=== PATIENT | female | born 1990 | race Two or more races ===

== ENCOUNTER 2025-06-29 21:36 | Emergency (ER) | payer MEDICAID, SELFPAY ==
[2025-06-29 21:37] VITALS: BMI 31.1
[2025-06-29 21:58] VITALS: BP 119/82; PULSE 87; RESP 18; TEMP 37; O2SAT 99
[2025-06-29 22:03] LABS: Collection Type, Urine Clean Catch
--- NOTE | 2025-06-29 22:03 | EDRME_ITS ---
Rapid Medical Screening Exam [facility] Arrival date/time: 06/29/25 21:36 35F at approximately 7 weeks and with no significant PMH presents to ED with 2 days of pelvic pain and vaginal bleeding. Patient's blood type is O+. Chief Complaint: Vaginal Bleeding Vital signs: Vital Signs Temperature 98.6 F 06/29/25 21:58 Pulse Rate 87 06/29/25 21:58 Respiratory Rate 18 06/29/25 21:58 Blood Pressure 119/82 06/29/25 21:58 Pulse Oximetry (%) 99 06/29/25 21:58 Oxygen Delivery Method Room Air 06/29/25 21:58
--- NOTE | 2025-06-29 22:04 | XR_ITS ---
Examination: OB Transvaginal ultrasound of the pelvis, complete Technique: Transvaginal sonographic images pelvis performed using marte scale imaging Exam date and time: June 29, 2025 1110 hrs. Indications: Vaginal bleeding and pelvic cramping today Findings: Uterus 8.9 cm endometrial stripe 24 cm No uterine mass or intrauterine gestation Right ovary 2.8 cm arterial flow 14 mm follicular cyst Left ovary obscured by bowel gas Impression: No uterine mass or intrauterine gestation.
[2025-06-29 22:23] LABS: Bilirubin,Urine Negative (Negative); Blood,Urine 3+ (Negative); Clarity,Urine Turbid (Clear/Hazy); Color,Urine Lt-Yellow (Lt Yel-Yel); Glucose, Urine Negative (Negative); Ketones,Urine Negative (Negative); Leukocyte Esterase,Urine Positive (Negative); Nitrite,Urine Negative (Negative); PH,Urine 6.5 (5.0-7.0); Protein,Urine Trace (Neg - Trace); RBC,Urine 1140 /hpf (0-3); Specific Gravity,Urine 1.025 (1.001-1.035); Squamous Epithelial Cell,Urine 2 /hpf (0-5); Urobilinogen,Urine Negative mg/dL (0.0-1.0); WBC,Urine 37 /hpf (0-5)
[2025-06-29 22:26] LABS: Basophils # (Auto) 0.0 Thou/mm3 (0.0-0.2); Basophils % (Auto) 0 % (0-2.5); Eosinophils # (Auto) 0.4 Thou/mm3 (0.0-0.5); Eosinophils % (Auto) 4 % (0-10); Hematocrit 39.4 % (36.0-46.0); Hemoglobin 12.4 g/dL (12.0-16.0); Immature Granulocytes Auto 0.04 Thou/mm3 (0.00-0.00); Lymphocytes # (Auto) 3.8 Thou/mm3 (1.0-4.8); Lymphocytes % (Auto) 36 % (10-50); Mean Corpuscular HGB Conc 31.5 g/dl (31.0-37.0); Mean Corpuscular Hemoglobin 25.7 pg (25.0-35.0); Mean Corpuscular Volume 82 fL (80-100); Monocytes # (Auto) 0.5 Thou/mm3 (0.0-0.8); Monocytes % (Auto) 5 % (0-12); Neutrophils # (Auto) 5.7 Thou/mm3 (1.8-7.7); Neutrophils % (Auto) 55 % (37-80); Nucleated Red Blood Cell # 0.00 Thou/mm3 (0.00-0.00); Nucleated Red Blood Cell % 0 /100 WBC (0); Platelet Count 280 Thou/mm3 (140-440); RDW Standard Deviation 41.8 fL (36.4-46.3); Red Blood Count 4.82 Miln/mm3 (4.00-5.20); White Blood Count 10.5 Thou/mm3 (3.6-11.0)
[2025-06-29 22:29] LABS: Culture Indicated,Urine Yes
[2025-06-29 22:45] LABS: Alanine Aminotransferase 46 U/L (10-49); Albumin, Serum 4.7 gm/dL (3.5-5.0); Albumin/Globulin Ratio 2.0 (1.2-2.2); Alkaline Phosphatase 86 U/L (46-116); Anion Gap 8 (7-16); Aspartate Amino Transferase 34 U/L (0-34); BUN/Creatinine Ratio 11 Ratio (12-20); Beta HCG,Quantitative 105 mIU/mL (<5.0); Bilirubin,Total 0.2 mg/dL (0.3-1.2); Blood Urea Nitrogen 9 mg/dL (9-23); Calcium 9.7 mg/dL (8.3-10.6); Calcium (Corrected) 9.7 mg/dL (8.5-10.1); Carbon Dioxide 26.7 mMol/L (20.0-31.0); Chloride 106 mMol/L (98-107); Creatinine (Component) 0.8 mg/dL (0.6-1.3); Estimated Creatinine Clearance 93.5 mL/min (>60); Globulin 2.3 gm/dL (2.3-3.5); Glucose 99 mg/dL (74-106); Osmolality,Calculated 279 (275-295); Potassium 4.9 mMol/L (3.4-5.1); Sodium 141 mMol/L (136-145); Total Protein 7.0 gm/dL (5.7-8.2); eGFR > 60 See Note
--- NOTE | 2025-06-30 00:18 | EDNOTE_ITS ---
ED OB Contraction Preg RMI/HPI General Chief complaint: Vaginal Bleeding Stated complaint: 7 WEEKS PRG, VAG BLEEDING AND PAIN Time Seen by Provider: 06/29/25 22:30 Arrival date/time: 06/29/25 21:36 RME / HPI RME / HPI Narrative: 06/29/25 21:36 35F at approximately 7 weeks and with no significant PMH presents to ED with 2 days of pelvic pain and vaginal bleeding. Patient's blood type is O+. DR. ESPINO MAIN ED EVALUATION: EGA 6-7 weeks by date presents with generalized abdominal pain and diffuse cramping x 24 hours. Patient has gone through several pads in the last day. Reports lightheadedness and dizziness with standin, but no near syncope. Notes chills without fever. PMH is unremarkable. Allergies are unremarkable. PSHx includes Cystectomy and x 3. No illicit drug use, patient is nondrinker and nonsmoker. Related Data Home Medications ?Medication ?Instructions ?Recorded ?Confirmed prenat.vits,bertha,[id number] 1 tab PO QDAY 01/10/21 02/02/21 ferrous sulfate 325 mg (65 mg 325 mg PO QDAY 01/14/21 02/02/21 iron) tablet (iron) Previous Rx's ?Medication ?Instructions ?Recorded hydrocodone 5 mg-acetaminophen 325 1 tab PO Q8H PRN pa in #7 tabs 02/05/21 mg tablet ibuprofen 400 mg tablet 400 mg PO Q6H PRN pain #14 t abs 02/05/21 promethazine 12.5 mg tablet 12.5 mg PO TID PRN nausea and 06/30/25 vomiting #10 tabs Allergies Allergy/AdvReac Type Severity Reaction Status Date / Time gluten Allergy Verified 06/29/25 21:37 TAPE Allergy Mild Rash Uncoded 06/29/25 21:37 Review of Systems Review of Systems Systems Reviewed: All systems reviewed, normal except as documented Past Medical History Past Medical History REPRODUCTIVE: Positive Previous Pregnancies HEMATOLOGIC: Positive Blood Disorders and Anemia OTHER HISTORY: Positive Hospitalization and Blood Transfusions Family History FAMILY HISTORY: Positive Family Respiratory Disorders (FATHER:ASTHMA), Family Cancer (MOTHER:SKIN TAG NOSE) and Family Surgery (MOTHER:HYSTERECTOMY) Surgical History SURGICAL: Positive Section ED Exam Narrative Physical exam: GEN. APPEARANCE: The patient is alert awake oriented X-3 in no distress, lying down comfortably, does not look ill/toxic. Patient has good eye contact. Patient is cooperative. VITALS: All vitals were reviewed and the pulse ox is 99% on room air which is normal according to my interpretation. HEENT: Normocephalic, atraumatic. Pupils are equal and reactive. Oral mucosa is moist. Patent Nares NECK: Supple, nontender, no thyromegaly, no meningismus, no JVD, no step offs CHEST: Symmetrical, atraumatic, and with equal expansion , Nontender on palpation no deformity and no crepitus. CARDIOVASCULAR: Heart regular rhythm no murmur or gallop rub or extra beats. LUNGS: Clear to auscultation bilaterally with symmetrical chest rise. No laboring tachypnea or wheezing. No intercostal subcostal retraction. No rales and no rhonchi. ABDOMEN: Soft, mildly tender diffuse lower abdomen, no guarding or peritoneal findings. No rebound tenderness. There are no abnormal masses palpated. Active and normal bowel sounds. EXTREMITIES: Nontender. No edema. No cyanosis. Patient is able to move all 4 extremities well, with full ROM and good CSM. SKIN: Warm and dry, no jaundice or rashes noted. MUSCULOSKELETAL: No lubar or midline bony tenderness. There is no CVA tenderness. No paraspinal muscle spasm or tenderness. NEURO: Patient is BHAGAT x 4, Cranial nerves II through XII grossly intact. There is no focal neurologic deficits noted. GCS is 15, PNS and [employer] appear grossly intact. PSYCHIATRIC: Patient is in normal mood and affect, cooperative, no SI or HI or hallucinations. Course Quality Measures none Orders Category Date Time Status US OB transvaginal Stat Exams 06/29/25 22:04 Completed Beta HCG,Quantitative Stat Lab 06/29/25 22:15 Completed CBC Stat Lab 06/29/25 22:15 Completed CMP [Comprehensive Metabolic Panel] Stat Lab 06/29/25 22:15 Completed UA, C/S IF [Urinalysis, C/S if Indicated] Stat Lab 06/29/25 21:56 Completed Urine Culture Stat Lab 06/29/25 21:56 Received Vital Signs Vital signs: Vital Signs Temperature 98.6 F 06/29/25 21:58 Pulse Rate 87 06/29/25 21:58 Respiratory Rate 18 06/29/25 21:58 Blood Pressure 119/82 06/29/25 21:58 Pulse Oximetry (%) 99 06/29/25 21:58 Oxygen Delivery Method Room Air 06/29/25 21:58 Vaginal Bleeding MDM Narrative MDM Narrative: Scribe Attestation: I, Maryam Kuhn, am scribing for and in the presence of Dr. Espino. Provider Notation: Although this document has been carefully reviewed, there may still be some phonetic and other typographical errors. These errors are purely grammatical due to imperfections in the software program and should not be construed in any way to compromise the substance of the patient's medical care during this visit. EGA 6-7 weeks by date presents with generalized abdominal pain and diffuse cramping x 24 hours. Patient has gone through several pads in the last day. Please see PE findings. Laboratory markers, including normal CBC, WBC stable, hemoglobin and platelets normal. Serum chemistries are unremarkable. UA demonstrates hematuria, pyuria, positive leukocyte esterase, and negative nitrite reaction. Blood type currently pending. Patient observed for several hours and remained otherwise stable throughout ED course. Underwent pelvic US which failed to demonstrate evidence of IUP, right ovarian follicular cyst with flow noted, and left ovary not clearly visualized. Given dates and HCG of 105, patient has likely suffered blighted ovum/complete AB, although?possibility of early still exists and will require repeat serum HCG and pelvic US in 3-5 days. Patient data External records reviewed:: [facility] previous records (Reviewed prior ED records from 01/19/24. Patient was seen for Fever and chills.) Clinical information provided by:: patient Social determinants that could affect healthcare access:: none Patient has the following chronic illnesses:: Anemia How is presenting disease/condition affected by chronic disease/condition?: uneffected by Evaluation data The following diagnostics were reviewed and interpreted by me:: lab results and radiology exam(s) Lab and/or radiology exams considered but not ordered:: None Interpretation Summary: RADIOLOGY Transvaginal US: Findings: Uterus 8.9 cm endometrial stripe 24 cm No uterine mass or intrauterine gestation Right ovary 2.8 cm arterial flow 14 mm follicular cyst Left ovary obscured by bowel gas Impression: No uterine mass or intrauterine gestation. Medications / Prescriptions Medications or Prescriptions considered but not ordered:: None Medication administrations:: See above if any Consultations Consultation(s) initiated? (list below): No Diagnosis Vaginal Bleeding Differential Diagnosis: missed , threatened , dysfunctional uterine bleeding, menometrorrhagia, incomplete , ectopic without intrauterine and vaginal bleeding Most likely diagnosis given after review of the tests above:: Missed Admission Indicated Admission indicated?: not indicated Explain why admission is indicated or not indicated:: Patient does not meet admission criteria. Admission Request Was there a request for admission?: No Disposition Plan Disposition Plan: Discharge Discharge Attestation Discharge Attestation: The patient and all family members were given an opportunity to ask questions and understood the discharge instructions. Discharge instructions specifically effects, indications for sooner follow up or return to the emergency department, and the expected course of current diagnosis. Patient condition: Stable Discharge Plan Plan Patient Disposition: HOME (Self Care) Discharge Disposition comment: stable Prescriptions/Referrals Prescriptions/Med Rec: New promethazine 12.5 mg tablet 12.5 mg PO TID PRN (Reason: nausea and vomiting) Qty: 10 0RF No Action Vitamin Tablet 1 tab PO QDAY hydrocodone-acetaminophen 5-325 mg tablet 1 tab PO Q8H MDD 4 PRN (Reason: pain) Qty: 7 0RF ibuprofen 400 mg tablet 400 mg PO Q6H MDD 6 PRN (Reason: pain) Qty: 14 0RF ferrous sulfate [iron] 325 mg (65 mg iron) Tablet 325 mg PO QDAY Problem List Clinical Impression: Missed Clinical Impression: (Ruled Out): Incomplete Patient/Caregiver Discharge Instructions Discharge Activity: activity as tolerated Diet Instructions: Regular Education Materials: Understanding Miscarriage: Emotions, Understanding Miscarriage ... Additional Instructions: Follow-up with PATENT COUNSEL physician in 48 to 72 hours for repeat hCG/serial ultrasound. Return for fevers escalating hemorrhage i.e. greater than 1 pad per hour lightheadedness dizziness or general worsening illness Print Language: Northern Irish Stand Alone Forms: Daniela Award Info., Patient Portal Info Letter
[2025-06-30 00:35] VITALS: RESP 18
== END 2025-06-30 00:35 | disposition home or self-care (01) ==
PROVIDERS: Physician Assistant; Emergency Provider Emergency Medicine
DX: O02.1 Missed abortion (principal); Z3A.01 Less than 8 weeks gestation of pregnancy
CPT/HCPCS: 36415; 76817; 80053; 81001; 84702; 85025; 87086; 99283

== ENCOUNTER 2025-07-05 10:09 | Emergency (ER) | payer MEDICAID, SELFPAY ==
[2025-07-05 10:18] VITALS: BP 107/74; PULSE 72; RESP 16; TEMP 37; O2SAT 100; BMI 31.4
--- NOTE | 2025-07-05 10:33 | PD.EDRME ---
Rapid Medical Screening Exam [facility] Arrival date/time: 07/05/25 10:09 35-year-old female presents to the emergency department of complaints of vaginal bleeding, pelvic pain and dysuria patient reports she recently had a miscarriage Chief Complaint: Abdominal Pain Vital signs: Vital Signs Temperature 98.6 F 07/05/25 10:18 Pulse Rate 72 07/05/25 10:18 Respiratory Rate 16 07/05/25 10:18 Blood Pressure 107/74 07/05/25 10:18 Pulse Oximetry (%) 100 07/05/25 10:18 Oxygen Delivery Method Room Air 07/05/25 10:18
--- NOTE | 2025-07-05 10:36 | XR_ITS ---
Examination: Pelvic ultrasound, transabdominal, complete Technique: Transabdominal ultrasound of the pelvis performed using grayscale imaging Date and time of exam: July 05, 2025 1110 hours INDICATIONS: Pelvic pain beginning one week ago FINDINGS: Uterus 10.3 cm endometrial stripe 0.3 cm No uterine mass or intrauterine gestation Right ovary 2.6 cm arterial flow. Left ovary 2.8 cm arterial flow to 11 mm follicular cyst IMPRESSION: No uterine mass or intrauterine gestation
[2025-07-05 10:57] LABS: Basophils # (Auto) 0.0 Thou/mm3 (0.0-0.2); Basophils % (Auto) 1 % (0-2.5); Eosinophils # (Auto) 0.4 Thou/mm3 (0.0-0.5); Eosinophils % (Auto) 4 % (0-10); Hematocrit 38.1 % (36.0-46.0); Hemoglobin 12.1 g/dL (12.0-16.0); Immature Granulocytes Auto 0.09 Thou/mm3 (0.00-0.00); Lymphocytes # (Auto) 3.4 Thou/mm3 (1.0-4.8); Lymphocytes % (Auto) 42 % (10-50); Mean Corpuscular HGB Conc 31.8 g/dl (31.0-37.0); Mean Corpuscular Hemoglobin 25.9 pg (25.0-35.0); Mean Corpuscular Volume 82 fL (80-100); Monocytes # (Auto) 0.5 Thou/mm3 (0.0-0.8); Monocytes % (Auto) 6 % (0-12); Neutrophils # (Auto) 3.7 Thou/mm3 (1.8-7.7); Neutrophils % (Auto) 45 % (37-80); Nucleated Red Blood Cell # 0.00 Thou/mm3 (0.00-0.00); Nucleated Red Blood Cell % 0 /100 WBC (0); Platelet Count 253 Thou/mm3 (140-440); RDW Standard Deviation 41.7 fL (36.4-46.3); Red Blood Count 4.67 Miln/mm3 (4.00-5.20); White Blood Count 8.1 Thou/mm3 (3.6-11.0)
[2025-07-05 11:22] LABS: Alanine Aminotransferase 52 U/L (10-49); Albumin, Serum 4.6 gm/dL (3.5-5.0); Albumin/Globulin Ratio 1.8 (1.2-2.2); Alkaline Phosphatase 77 U/L (46-116); Anion Gap 8 (7-16); Aspartate Amino Transferase 30 U/L (0-34); BUN/Creatinine Ratio 13 Ratio (12-20); Beta HCG,Quantitative 6 mIU/mL (<5.0); Bilirubin,Total 0.2 mg/dL (0.3-1.2); Blood Urea Nitrogen 10 mg/dL (9-23); Calcium 10.0 mg/dL (8.3-10.6); Calcium (Corrected) 10.0 mg/dL (8.5-10.1); Carbon Dioxide 28.2 mMol/L (20.0-31.0); Chloride 104 mMol/L (98-107); Creatinine (Component) 0.8 mg/dL (0.6-1.3); Estimated Creatinine Clearance 94.0 mL/min (>60); Globulin 2.6 gm/dL (2.3-3.5); Glucose 93 mg/dL (74-106); Osmolality,Calculated 278 (275-295); Potassium 4.7 mMol/L (3.4-5.1); Sodium 140 mMol/L (136-145); Total Protein 7.2 gm/dL (5.7-8.2); eGFR > 60 See Note
[2025-07-05 11:28] LABS: Collection Type, Urine Clean Catch
[2025-07-05 12:09] LABS: Bilirubin,Urine Negative (Negative); Blood,Urine 1+ (Negative); Clarity,Urine Clear (Clear/Hazy); Color,Urine Lt-Yellow (Lt Yel-Yel); Culture Indicated,Urine Not Indicated; Glucose, Urine Negative (Negative); Ketones,Urine Negative (Negative); Leukocyte Esterase,Urine Negative (Negative); Nitrite,Urine Negative (Negative); PH,Urine 7.0 (5.0-7.0); Protein,Urine Negative (Neg - Trace); RBC,Urine 9 /hpf (0-3); Specific Gravity,Urine 1.018 (1.001-1.035); Squamous Epithelial Cell,Urine 2 /hpf (0-5); Urobilinogen,Urine Negative mg/dL (0.0-1.0); WBC,Urine 1 /hpf (0-5)
--- NOTE | 2025-07-05 16:31 | EDNOTE_ITS ---
<Statement entered by Rebeca Murray MD - 07/24/25 06:11> As co-signing physician, I was present and available for consult prn. I concur with the plan and care as documented by the midlevel provider. ED OB Contraction Preg RMI/HPI General Chief complaint: Abdominal Pain Stated complaint: ABD PAIN Time Seen by Provider: 07/05/25 11:22 Arrival date/time: 07/05/25 10:09 RME / HPI RME / HPI Narrative: 35-year-old female presents to the emergency department of complaints of vaginal bleeding, pelvic pain and dysuria patient reports she recently had a miscarriage. Patient is concerned because she is worried that she is might be having anemia. Patient denies any other complaints patient is ambulatory. Today she changes at least 2 pads only . Related Data Home Medications ?Medication ?Instructions ?Recorded ?Confirmed prenat.vits,bertha,[id number] 1 tab PO QDAY 01/10/21 02/02/21 ferrous sulfate 325 mg (65 mg 325 mg PO QDAY 01/14/21 02/02/21 iron) tablet (iron) Previous Rx's ?Medication ?Instructions ?Recorded hydrocodone 5 mg-acetaminophen 325 1 tab PO Q8H PRN pa in #7 tabs 02/05/21 mg tablet ibuprofen 400 mg tablet 400 mg PO Q6H PRN pain #14 t abs 02/05/21 promethazine 12.5 mg tablet 12.5 mg PO TID PRN nausea and 06/30/25 vomiting #10 tabs Allergies Allergy/AdvReac Type Severity Reaction Status Date / Time gluten Allergy Verified 06/29/25 21:37 TAPE Allergy Mild Rash Uncoded 06/29/25 21:37 Review of Systems Review of Systems Narrative Review of Systems: Review of system reviewed and within normal limits except mentioned in HPI ED Exam Narrative Physical exam: VITAL SIGNS: Reviewed. GENERAL APPEARANCE: Alert and interactive, follows commands, no acute distress, HEAD AND FACE: Non-traumatic. ENT: PERRL, pink conjunctivitis, eyelid no trauma, Mucous membrane moist. NECK: Supple, nontender, no nuchal rigidity. CHEST: No tenderness, no crepitus, no paradoxical movement, no retractions. LUNGS: Clear, well ventilated, symmetric, no rales, no wheezing, no ronchi, no stridor, good breath sounds bilaterally. HEART: Regular rate, regular rhythm, no murmur, no gallops. ABDOMEN: Soft, positive bowel sounds, nondistended, no guarding, nontender, no rebound, no masses, RECTAL: Deferred. GENITAL: Deferred. NEUROLOGICAL: Gross motor function intact sensory function intact, Appropriate for age. MUSCULOSKELETAL: low back nontender, full range of motion. EXTREMITIES: Nontender, full range of motion. SKIN: Color pink, dry, no rash, no lacerations, no abrasions, no contusions. LYMPHATICS: Deferred. Course Quality Measures none Orders Category Date Time Status US pelvic complete Stat Exams 07/05/25 10:36 Completed Beta HCG,Quantitative Stat Lab 07/05/25 10:48 Completed CBC Stat Lab 07/05/25 10:48 Completed Comprehensive Metabolic Panel Stat Lab 07/05/25 10:48 Completed UA, C/S IF [Urinalysis, C/S if Indicated] Stat Lab 07/05/25 11:17 Completed Vital Signs Vital signs: Vital Signs Temperature 98.6 F 07/05/25 10:18 Pulse Rate 72 07/05/25 10:18 Respiratory Rate 16 07/05/25 10:18 Blood Pressure 107/74 07/05/25 10:18 Pulse Oximetry (%) 100 07/05/25 10:18 Oxygen Delivery Method Room Air 07/05/25 10:18 Vaginal Bleeding MDM Narrative MDM Narrative: 35-year-old female presents to the emergency department of complaints of vaginal bleeding, pelvic pain and dysuria patient reports she recently had a miscarriage. Patient is concerned because she is worried that she is might be having anemia. Patient denies any other complaints patient is ambulatory. Tod ay she changes at least 2 pads only . Patient's workup today all came back unremarkable. CBC no sign of anemia. Patient hCG today was only noted to be 6. Ultrasound of the showed no IUP no abnormality noted. Results discussed with the patient. Patient was also given a copy of her ultrasound. Patient stable for discharge home no sign of hypotension. Patient data External records reviewed:: None Clinical information provided by:: patient and family Social determinants that could affect healthcare access:: none Patient has the following chronic illnesses:: None How is presenting disease/condition affected by chronic disease/condition?: no chronic disease Evaluation data The following diagnostics were reviewed and interpreted by me:: lab results and radiology exam(s) Lab and/or radiology exams considered but not ordered:: None Interpretation Summary: See results MDM Medications / Prescriptions Medications or Prescriptions considered but not ordered:: None Medication administrations:: None Consultations Consultation(s) initiated? (list below): No Diagnosis Vaginal Bleeding Differential Diagnosis: missed and threatened Most likely diagnosis given after review of the tests above:: Completed Admission Indicated Admission indicated?: not indicated Admission Request Was there a request for admission?: No Disposition Plan Disposition Plan: Discharge Discharge Attestation Discharge Attestation: The patient and all family members were given an opportunity to ask questions and understood the discharge instructions. Discharge instructions specifically effects, indications for sooner follow up or return to the emergency department, and the expected course of current diagnosis. Patient condition: Stable Discharge Plan Plan Patient Disposition: HOME (Self Care) Discharge Disposition comment: Stable Prescriptions/Referrals Prescriptions/Med Rec: No Action Vitamin Tablet 1 tab PO QDAY hydrocodone-acetaminophen 5-325 mg tablet 1 tab PO Q8H MDD 4 PRN (Reason: pain) Qty: 7 0RF ibuprofen 400 mg tablet 400 mg PO Q6H MDD 6 PRN (Reason: pain) Qty: 14 0RF ferrous sulfate [iron] 325 mg (65 mg iron) Tablet 325 mg PO QDAY promethazine 12.5 mg tablet 12.5 mg PO TID PRN (Reason: nausea and vomiting) Qty: 10 0RF Referrals: Meghan Rosenberg PA-C [Primary Care Provider] - In 1 week Problem List Clinical Impression: Complete Patient/Caregiver Discharge Instructions Discharge Activity: activity as tolerated Education Materials: Understanding Miscarriage ... Additional Instructions: Thank you for the opportunity for serving you today. You are stable for discharged . You are advised to: Follow-up with your PCP in 1 to 2 days Return to ED for worsening of symptoms Increase oral fluids Ultrasound of the today showed no intrauterine gestation. No retained products of conception noted also. Your CBC today showed normal no sign of anemia Print Language: Lao Stand Alone Forms: Daniela Award Info., Patient Portal Info Letter JAIMEE/MASON Supervising Physician JAIMEE/MASON Supervising Physician: MD Terri
== END 2025-07-05 17:19 | disposition home or self-care (01) ==
PROVIDERS: Nurse Practitioner Primary Care; Emergency Provider Emergency Medicine; PCP Physician Assistant Medical
DX: O03.9 Complete or unspecified spontaneous abortion without complication (principal)
CPT/HCPCS: 36415; 76856; 80053; 81001; 84702; 85025; 99283